=== PATIENT | male | born 1970 ===

== ENCOUNTER 2019-07-22 06:00 | Day surgery (SDC) | payer OTHER | END 2019-07-22 10:40 | disposition home or self-care (01) | LOC: AMB-ENDOS 06:00 → ADM 14:15 → AMB-ENDOS 14:15 | DX: K62.89 Other specified diseases of anus and rectum (principal); K57.30 Diverticulosis of large intestine without perforation or abscess without bleeding; K64.1 Second degree hemorrhoids; Z12.11 Encounter for screening for malignant neoplasm of colon ==